=== PATIENT | female | born 1960 | race Caucasian/White ===

== ENCOUNTER 2020-11-21 07:24 | Emergency (ER) | payer BC ==
[~2020-11-21] VITALS: Ht 170.2 cm; Wt 88.6 kg
[2020-11-21 07:30] VITALS: BP 148/37
[2020-11-21] MEDS ORDERED: dexamethasone sod phosphate 10mg/ml inj IM STA (08:29)
[2020-11-21] MEDS ORDERED: ketorolac tromethamine 15mg/ml inj. IM ONE (08:30)
--- NOTE | 2020-11-21 10:13 | NUR ---
PT STATES, IM FEELING BETTER.
== END 2020-11-21 10:15 | disposition home or self-care (01) ==
LOC: ER 07:26
DX: R59.1 Generalized enlarged lymph nodes (principal)
CPT/HCPCS: 87081; 87880; 96372; 99284; J1100; J1885